=== PATIENT | male | born 1990 | race Caucasian/White ===

== ENCOUNTER → 2019-10-23 | Outpatient (CLI) | payer OTHER ==
[2019-10-23 22:11] LABS: Total Protein,CSF 49 mg/dL (12-60)
[2019-10-24 02:13] LABS: Appearance,CSF Clear; CSF Tube Number 4; CSF Tube Volume 2.5; Nucleated Cells, CSF 1 u/L (0-5); Red Blood Cell,CSF 1 u/L (0-10)
== END | disposition home or self-care (01) ==
LOC: LABWHC1 09:22
PROVIDERS: ATTEND Psychiatry & Neurology Neurology
DX: R90.82 White matter disease, unspecified (principal)
CPT/HCPCS: 36415; 82040; 82042; 82784; 83873; 83916; 84157; 87801; 89050

== ENCOUNTER 2022-02-22 09:58 | Inpatient (IN) | payer BC, MEDICAID, OTHER ==
--- NOTE | 2022-02-22 10:40 | ED ---
General Adult HPI - General Chief complaint: Psychiatric Symptoms Stated complaint: mental health Time Seen by Provider: 02/22/22 10:25 Source: patient, RN notes reviewed, old records reviewed Mode of arrival: ambulatory - History of Present Illness Initial comments: This is a 31-year-old male who presents emergency Department with his girlfriend and his mother. Mother and girlfriend state that for the last 3 days she's not been acting like himself. Patient thinks is probably patient thinks he has answered to life and he is making all sorts of weird comments that don't seem to be based in reality. Patient himself tells me that he has answered to life and it is too and he states that he can help ethically communicate with most people. Patient states he has used marijuana but no other drugs. Patient family states that this all started after he got a massage. Patient denies any recent fever chills or cough. Patient states he feels supple. Patient states she's just waiting for the rest of the answers to calm to home and is crampy in the form of some numbers. - Related Data Home Medications Medication Instructions Recorded Confirmed No Known Home Medications 02/22/22 02/22/22 Allergies Allergy/AdvReac Type Severity Reaction Status Date / Time No Known Allergies Allergy Verified 02/22/22 11:09 Review of Systems ROS Statement: Those systems with pertinent positive or pertinent negative responses have been documented in the HPI. ROS Other: All systems not noted in ROS Statement are negative. Past Medical History Past Medical History: No Reported History History of Any Multi-Drug Resistant Organisms: None Reported Additional Past Surgical History / Comment(s): eye Past Psychological History: No Psychological Hx Reported Smoking Status: Current every day smoker Past Alcohol Use History: Rare Past Drug Use History: Marijuana General Exam - General Exam Comments Initial Comments: GENERAL: Patient is well-developed and well-nourished. Patient is nontoxic and well- hydrated and is in no acute distress. ENT: Neck is soft and supple. No significant lymphadenopathy is noted. Oropharynx is clear. Moist mucous membranes. Neck has full range of motion without eliciting any pain. EYES: The sclera were anicteric and conjunctiva were pink and moist. Extraocular movements were intact and pupils were equal round and reactive to light. Eyelids were unremarkable. PULMONARY: Unlabored respirations. Good breath sounds bilaterally. No audible rales rhonchi or wheezing was noted. CARDIOVASCULAR: There is a regular rate and rhythm without any murmurs gallops or rubs. ABDOMEN: Soft and nontender with normal bowel sounds. SKIN: Skin is clear with no lesions or rashes and otherwise unremarkable. NEUROLOGIC: Patient is alert and oriented x3. Cranial nerves II through XII are grossly intact. Motor and sensory are also intact. Normal speech, volume and content. Symmetrical smile. MUSCULOSKELETAL: Normal extremities with adequate strength and full range of motion. No lower extremity swelling or edema. No calf tenderness. LYMPHATICS: No significant lymphadenopathy is noted PSYCHIATRIC: Normal psychiatric evaluation. Course Vital Signs 02/22/22 02/22/22 10:08 15:16 Temperature 98 F 98.3 F Pulse Rate 106 H Pulse Rate [ 85 Pulse Oximetery ] Respiratory 18 18 Rate Blood Pressure 157/85 Blood Pressure 150/85 [Right Arm] O2 Sat by Pulse 98 98 Oximetry Medical Decision Making - Medical Decision Making Was pt. sent in by a medical professional or institution (, PA, CONTROL ROOM TENDER, urgent care, hospital, or halfway...) When possible be specific @ -No Did you speak to anyone other than the patient for history (EMS, parent, family, police, friend...)? What history was obtained from this source @ -I spoke with the [place] front and the mother about this case Did you review nursing and triage notes (agree or disagree)? Why? @ -I reviewed and agree with nursing and triage notes Were old charts reviewed (outside hosp., previous admission, EMS record, old EKG, old radiological studies, urgent care reports/EKG's, halfway records)? Report findings @ -No old charts were reviewed Differential Diagnosis (chest pain, altered mental status, abdominal pain women, abdominal pain men, vaginal bleeding, weakness, fever, dyspnea, syncope, headache, dizziness, GI bleed, back pain, seizure, CVA, palpatations, mental health)? @ -Drugs, psychosis, manic is not all inclusive list EKG interpreted by me (3pts min.). @ -As above X-rays interpreted by me (1pt min.). @ -None done CT interpreted by me (1pt min.). @ -None done U/S interpreted by me (1pt. min.). @ -None done What testing was considered but not performed or refused? (CT, X-rays, U/S, labs)? Why? @ -None What meds were considered but not given or refused? Why? @ -None Did you discuss the management of the patient with other professionals (professionals i.e. , PA, CONTROL ROOM TENDER, lab, RT, psych nurse, social insurance analyst, nursing scheduler, teacher, chief lending officer, case making machine operator)? Give summary @ -Woke with the EPS nurse and she spoke with the psychiatrist they decided to admit the patient. Was smoking cessation discussed for >3mins.? @ -No Was critical care preformed (if so, how long)? @ -No Were there social determinants of health that impacted care today? How? (Homelessness, low income, unemployed, alcoholism, drug addiction, transportation, low edu. Level, literacy, decrease access to med. care, assisted, rehab)? @ -No Was there de-escalation of care discussed even if they declined (Discuss DNR or withdrawal of care, Hospice)? DNR status @ -No What co-morbidities impacted this encounter? (DM, HTN, Smoking, COPD, CAD, Cancer, CVA, ARF, Chemo, Hep., AIDS, mental health diagnosis, sleep apnea, morbid obesity)? @ -None Was patient admitted / discharged? Hospital course, mention meds given and route, prescriptions, significant lab abnormalities, going to OR and other pertinent info. @ -Patient will be admitted to the psych unit patient signed himself in. Undiagnosed new problem with uncertain prognosis? @ -No Drug Therapy requiring intensive monitoring for toxicity (Heparin, Nitro, Insulin, Cardizem)? @ -No Were any procedures done? @ -No Diagnosis/symptom? @ -Psychosis Acute, or Chronic, or Acute on Chronic? @ -Acute Uncomplicated (without systemic symptoms) or Complicated (systemic symptoms)? @ -default Side effects of treatment? @ -No Exacerbation, Progression, or Severe Exacerbation? @ -No Poses a threat to life or bodily function? How? (Chest pain, USA, ME, pneumonia, PE, COPD, DKA, ARF, appy, cholecystitis, CVA, Diverticulitis, Homicidal, Suicidal, threat to staff... and all critical care pts) @ -No - Lab Data Lab Results 02/22/22 02/22/22 Range/Units 10:42 14:22 Urine Opiates Screen Not Detected (NotDetected) Ur Oxycodone Screen Not Detected (NotDetected) Urine Methadone Screen Not Detected (NotDetected) Ur Propoxyphene Screen Not Detected (NotDetected) Ur Barbiturates Screen Not Detected (NotDetected) U Tricyclic Antidepress Not Detected (NotDetected) Ur Phencyclidine Scrn Not Detected (NotDetected) Ur Amphetamines Screen Not Detected (NotDetected) U Methamphetamines Scrn Not Detected (NotDetected) U Benzodiazepines Scrn Not Detected (NotDetected) Urine Cocaine Screen Not Detected (NotDetected) U Marijuana (THC) Screen Detected H (NotDetected) Coronavirus (PCR) Not Detected (Not Detectd) Disposition Clinical Impression: Acute psychosis Disposition: ADMITTED IP TO THIS HOSP Time of Disposition: 13:36
[2022-02-22 11:28] LABS: Amphetamine Screen,Urine Not Detected (NotDetected); Barbiturate Screen,Urine Not Detected (NotDetected); Benzodiazepines Screen,Urine Not Detected (NotDetected); Cocaine Screen,Urine Not Detected (NotDetected); Methadone Screen, Urine Not Detected (NotDetected); Opiate Screen,Urine Not Detected (NotDetected); Oxycodone Screen, Urine Not Detected (NotDetected); Phencyclidine Screen,Urine Not Detected (NotDetected); Tricyclic Antidepressant,Urine Not Detected (NotDetected); Urn Cannabinoid Scrn Detected (NotDetected)
[2022-02-22] MEDS ORDERED: MAGNESIUM HYDROXIDE 2,400 MG/10 ML CUP PO PRN (15:41)
[2022-02-22] MEDS ORDERED: HALOPERIDOL LACTATE 5 MG/ML 1 ML VIAL IM PRN (15:41)
[2022-02-22] MEDS ORDERED: LORazepam 1 MG TAB PO PRN (15:41)
[2022-02-22] MEDS ORDERED: ACETAMINOPHEN TAB 325 MG TAB PO PRN (15:41)
[2022-02-22] MEDS ORDERED: MAG HYDROX/AL HYDROX/SIMETH 30 ML CUP PO PRN (15:41)
[2022-02-22] MEDS ORDERED: haloperidoL 5 MG TAB PO PRN (15:44)
[2022-02-22] MEDS ORDERED: LORazepam 2 MG/ML INJ IM PRN (15:44)
--- NOTE | 2022-02-22 23:51 | P.PN ---
Progress Note - Text Progress Note Date: 02/22/22 Attempted to see the patient in the mental health unit at 2200. The patient was sedated and inappropriate for evaluation as per the mental health RN.
[2022-02-23 08:15] LABS: Basophils % (A) 0 %; Eosinophils % (A) 0 %; HCT 46.4 % (39.0-53.0); HGB 15.8 gm/dL (13.0-17.5); Lymphocytes # (A) 1.5 k/uL (1.0-4.8); Lymphocytes % (A) 24 %; MCH 31.6 pg (25.0-35.0); MCHC 34.1 g/dL (31.0-37.0); MCV 92.9 fL (80.0-100.0); Mean Platelet Volume 8.6; Monocytes # (A) 0.4 k/uL (0-1.0); Monocytes % (A) 7 %; Neutrophils # (A) 4.2 k/uL (1.3-7.7); Neutrophils % (A) 67 %; Platelet Count 280 k/uL (150-450); RBC 4.99 m/uL (4.30-5.90); RDW 12.4 % (11.5-15.5); WBC 6.2 k/uL (3.8-10.6)
[2022-02-23 08:24] LABS: ALT 38 U/L (4-49); AST 56 U/L (17-59); African American GFR (CKD) >90 (>60 ml/min/1.73 sqM); Alkaline Phosphatase 59 U/L (38-126); Anion Gap 8 mmol/L; Blood Urea Nitrogen 17 mg/dL (9-20); Calcium 9.5 mg/dL (8.4-10.2); Carbon Dioxide 27 mmol/L (22-30); Chloride 103 mmol/L (98-107); Glucose 87 mg/dL (74-99); Non-African American GFR(CKD) 79 (>60 ml/min/1.73 sqM); Potassium 4.4 mmol/L (3.5-5.1); Sodium 138 mmol/L (137-145); Total Bilirubin 1.3 mg/dL (0.2-1.3); Total Protein 8.2 g/dL (6.3-8.2)
[2022-02-23] MEDS ORDERED: PALIPERIDONE 3 MG TAB.ER.24 PO STA (10:19)
--- NOTE | 2022-02-23 12:32 | P.HP ---
Psychiatric H&P - . H&P Date: 02/23/22 History & Physical: Allergies Allergy/AdvReac Type Severity Reaction Status Date / Time No Known Allergies Allergy Verified 02/22/22 11:09 Vital Signs Temp 98.5 F 02/23/22 06:15 Pulse 97 02/23/22 06:15 Resp 17 02/23/22 06:15 BP 141/81 02/23/22 06:15 Pulse Ox 97 02/23/22 06:15 FiO2 Intake & Output 02/22/22 02/23/22 02/23/22 18:59 06:59 18:59 Weight 84 kg Laboratory Last Values WBC 6.2 k/uL (3.8-10.6) 02/23/22 07:19 RBC 4.99 m/uL (4.30-5.90) 02/23/22 07:19 Hgb 15.8 gm/dL (13.0-17.5) 02/23/22 07:19 Hct 46.4 % (39.0-53.0) 02/23/22 07:19 MCV 92.9 fL (80.0-100.0) 02/23/22 07:19 MCH 31.6 pg (25.0-35.0) 02/23/22 07:19 MCHC 34.1 g/dL (31.0-37.0) 02/23/22 07:19 RDW 12.4 % (11.5-15.5) 02/23/22 07:19 Plt Count 280 k/uL (150-450) 02/23/22 07:19 MPV 8.6 02/23/22 07:19 Neutrophils % 67 % 02/23/22 07:19 Lymphocytes % 24 % 02/23/22 07:19 Monocytes % 7 % 02/23/22 07:19 Eosinophils % 0 % 02/23/22 07:19 Basophils % 0 % 02/23/22 07:19 Neutrophils # 4.2 k/uL (1.3-7.7) 02/23/22 07:19 Lymphocytes # 1.5 k/uL (1.0-4.8) 02/23/22 07:19 Monocytes # 0.4 k/uL (0-1.0) 02/23/22 07:19 Eosinophils # 0.0 k/uL (0-0.7) 02/23/22 07:19 Basophils # 0.0 k/uL (0-0.2) 02/23/22 07:19 Sodium 138 mmol/L (137-145) 02/23/22 07:19 Potassium 4.4 mmol/L (3.5-5.1) 02/23/22 07:19 Chloride 103 mmol/L (98-107) 02/23/22 07:19 Carbon Dioxide 27 mmol/L (22-30) 02/23/22 07:19 Anion Gap 8 mmol/L 02/23/22 07:19 BUN 17 mg/dL (9-20) 02/23/22 07:19 Creatinine 1.24 mg/dL (0.66-1.25) 02/23/22 07:19 Est GFR (CKD-EPI)AfAm >90 (>60 ml/min/1.73 sqM) 02/23/22 07:19 Est GFR (CKD-EPI)NonAf 79 (>60 ml/min/1.73 sqM) 02/23/22 07:19 Glucose 87 mg/dL (74-99) 02/23/22 07:19 Calcium 9.5 mg/dL (8.4-10.2) 02/23/22 07:19 Total Bilirubin 1.3 mg/dL (0.2-1.3) 02/23/22 07:19 AST 56 U/L (17-59) 02/23/22 07:19 ALT 38 U/L (4-49) 02/23/22 07:19 Alkaline Phosphatase 59 U/L (38-126) 02/23/22 07:19 Total Protein 8.2 g/dL (6.3-8.2) 02/23/22 07:19 Albumin 5.0 g/dL (3.5-5.0) 02/23/22 07:19 TSH 1.310 mIU/L (0.465-4.680) 02/23/22 07:19 Urine Opiates Screen Not Detected (NotDetected) 02/22/22 10:42 Ur Oxycodone Screen Not Detected (NotDetected) 02/22/22 10:42 Urine Methadone Screen Not Detected (NotDetected) 02/22/22 10:42 Ur Propoxyphene Screen Not Detected (NotDetected) 02/22/22 10:42 Ur Barbiturates Screen Not Detected (NotDetected) 02/22/22 10:42 U Tricyclic Antidepress Not Detected (NotDetected) 02/22/22 10:42 Ur Phencyclidine Scrn Not Detected (NotDetected) 02/22/22 10:42 Ur Amphetamines Screen Not Detected (NotDetected) 02/22/22 10:42 U Methamphetamines Scrn Not Detected (NotDetected) 02/22/22 10:42 U Benzodiazepines Scrn Not Detected (NotDetected) 02/22/22 10:42 Urine Cocaine Screen Not Detected (NotDetected) 02/22/22 10:42 U Marijuana (THC) Screen Detected (NotDetected) H 02/22/22 10:42 Coronavirus (PCR) Not Detected (Not Detectd) 02/22/22 14:22 02/23/22 12:32 IDENTIFYING DATA: Patient is a single, employed, 31-year-old male with no significant psychiatric history who presented to emergency department accompanied by family for acute psychotic thoughts and behavior. HPI: Patient presented to the hospital on 02/22/2022 accompanied by family for acute psychotic thoughts and behaviors. As per EPS report, the patient was ntoed to be very tangential with a flight of ideas in the emergency department. He reported "I'm here to tell everyone why people are the way that they are." He did admit to a recent suicide attempt where he drove through a red light. He reported to the EPS nurse that since he did not he "passed." He was subsequently admitted to the psychiatric unit and signed Adult Formal Voluntary. Upon evaluation on the mental health unit, the patient reports that he began "looking and feeling different" ealier this month. History is difficult to obtain due to the patient's tangentiality. He reports that he was feeling fed up with his job at [employer] and decided to develop his own "golf bag." He reports that in doing so he began to realize differnt patterns. He goes on with many loose associations, talking about [place], watching football, and believing he needs to speak with Holman Musk. In regards to psychotic symptoms, he does endorse auditory hallucinations. He also reports delusional thoughts including loose associations and ideas of reference. He reports he watches Twitch streamers who often send him messages. The patient is unable to identify any acute stressors aside from work. He reports no significant depressive symptoms. He does endorse significant symptoms of myah including grandiosity, increased mood lability, flight of ideas, and excessive energy. He reports he would sleep a few hours per night so that he can wake up at 330 am to workout and lift. In regards to substance use, the patient denies any tobacco, alcohol, or illicit drug use. He denies any exogenous steroid, testosterone, or other supplements a side from apple cider vinegar. The patient does report he smokes marijuana at least 3 times daily. He is admitted for further evaluation and management of psychosis/myah. PAST PSYCHIATRIC HISTORY: Patient states that he has no previous psychiatric history. Patient denies being on any psychiatric medications. Patient denies any previous psychiatric hospitalizations. Patient denies any psychiatric outpatient follow-up. Aside from running the red light, he denies other attempts at suicide. PMH: Past Medical History: No Reported History History of Any Multi-Drug Resistant Organisms: None Reported Additional Past Surgical History / Comment(s): eye Past Psychological History: No Psychological Hx Reported Smoking Status: Current every day smoker Past Alcohol Use History: Rare Past Drug Use History: Marijuana ALLERGIES: NKDA CHEMICAL DEPENDENCY HISTORY: As per HPI FAMILY PSYCHIATRIC/SUBSTANCE USE HISTORY: Reported mental illness with his mother. He reports his mother was previously admitted onto this psychiatric unit. SOCIAL HISTORY: Patient was born and raised in [place], [place]. He is single however has been in a relationship with his girlfriend for approximately 3.5 years. He reports no children. He states he is employed by [employer] but is uncertain now. Graduated highschool. Hobbies and interests include gym, working out, and golf. He reports no orthodoxy affiliation. He reports a history of poaching charges when he went hunting in the past. He states it was unintentional. He reports no history of abuse. MENTAL STATUS EXAM: General Appearance: Patient appears to be stated age is alert, directable, and attempts to cooperate. Patient appears to have fair hygiene and grooming. Behavior: Patient is seated without any agitated behavior. Speech: Patient's speech is fluent and nonpressured. Mood/Affect: Patient reports their mood is "I feel okay." Affect is congruent and euthymic. Suicidality/Homicidality: Patient denies having any homicidal ideation intent or plan. Denies any suicidal ideations intent or plan Perceptions: Patient endorses auditory hallucinations. He denies any visual hallucinations. Though content/process: Flight of ideas, loose associations, ideas of reference, grandiose. Memory and concentration: AOX3, grossly intact for the purposes of this session. Can spell "WORLD" backwards Judgment and insight: poor STRENGTHS/WEAKNESSES: Strength is that the patient is in good health and relatively high functioning. Weakness is the patients heavy cannabis use. INTELLECT: average IMPRESSIONS: Acute Psychotic episode - suspect cannabis induced Rule out schizoaffect disorder bipolar type vs bipolar 1 disorder Cannabis use disorder PLAN: -Patient is admitted under voluntary status to MHU for stabilization of psychiatric symptoms and safety. Patient signed adult voluntary form and medication consent and is placed in patient's chart. -Medications : Initialy invega however patient has no insurance. He is agreeable to switch to haldol. Will start Haldol 3 mg twice daily for psychosis. Start trazodone 100 mg at bedtime for insomnia -Ativan and Haldol PRN for agitation/aggression -Patient was counselled on substance abuse and desired to cut back on use -Patient was informed of the risks, benefits and side effects of the medication and patient verbally consented to taking the medications. Patient signed med consent form and was placed in chart. -Internal Medicine consult to perform medical evaluation and physical. -SW on board for discharge planning. Encourage patient to participate in groups to work on coping skills. 02/23/22 12:32
[2022-02-23] MEDS ORDERED: haloperidoL 1 MG TAB PO SCH (21:00)
[2022-02-23] MEDS: traZODone HCL 100 MG TAB PO SCH (22:30)
--- NOTE | 2022-02-24 02:45 | P.PN ---
Progress Note - Text Progress Note Date: 02/23/22 Attempted to see the patient in the mental health unit at 2200 on 02/23. The patient was sedated as per the mental health unit RN and inappropriate for evaluation.
[2022-02-24 07:12] VITALS: TEMP 97.8
[2022-02-24] MEDS ORDERED: PALIPERIDONE 6 MG TAB.ER.24 PO SCH ×2 (09:00)
--- NOTE | 2022-02-24 11:44 | P.PN ---
Progress Note - Text Progress Note Date: 02/24/22 Interval History: Patient was seen wandering the hallways and was directable and agreeable to speak with short story writer in the office. The patient is reporting that he is feeling better. He states "I am feeling the energy and good thoughts from everyone and I feel it myself." He expresses he was able to sleep last night and he ate as well. He has been adherent with his medications and is not endorsing any side effects at this time. He did have brain imaging performed in 2019 for evaluation of MS as he experienced some memory issues and balance issues in the past. Dr Toro's office will be sending the MRI from that evaluation via fax. The patient's mother provided collateral information after the patient signed an VINCE for her. The patient's mother reports that the patient first began experiencing symptoms over the past week. She does suspect that the patient has been using copious amounts marijuana and mushrooms. Of note, the patient did require Haldol last night due to paranoia and requesting to leave the psychiatric unit. Mental Status Exam: General Appearance: Patient appears to be stated age is alert, directable, and cooperative. Behavior: Patient is calmly seated without any agitated behavior. Speech: Patient's speech is fluent and nonpressured. Much more linear and logical today. Mood/Affect: Mood is improving mildly, affect is expansive and bright. Suicidality/Homicidality: Patient denies having any suicidal or homicidal ideation intent or plan. Perceptions: Patient denies any visual hallucinations and denies any auditory hallucinations Though content/process: Some grandiose delusional thought content is endorsed however he is much more linear and logical today. Memory and concentration: AOX3, grossly intact for the purposes of this session Judgment and insight: Improving mildly Vital Signs Temp 97.8 F 02/24/22 06:33 Pulse 79 02/24/22 06:33 Resp 16 02/24/22 06:33 BP 133/75 02/24/22 06:33 Pulse Ox 97 02/23/22 06:15 FiO2 Laboratory Results - Last 24 Hours 02/23/22 07:[address] Glu mg/dL 116 Hemoglobin A1c 5.7 Assessment Substance-induced bipolar disorder Rule out schizoaffective disorder bipolar type versus bipolar 1 disorder Cannabis use disorder Other psychoactive substance use disorder Plan: -Patient continues to meet criteria for inpatient psychiatric admission for symptom stabilization and safety. Patient has signed adult voluntary form and medication consent and was placed in patient's chart. -Medications: Increase Invega to 6 mg by mouth daily for psychosis today. Increase it to 9 mg tomorrow. Continue trazodone 100 mg by mouth at bedtime for insomnia -When necessary Ativan and Haldol for agitation/aggression. -SW on board for discharge planning. Encouraged the patient to participate in milieu.
[2022-02-24] MEDS: traZODone HCL 100 MG TAB PO SCH (20:05)
[2022-02-25 03:42] VITALS: BP 124/73; PULSE 108; RESP 18
[2022-02-25 07:11] LABS: Chol/HDL Ratio 3.71 Ratio; LDL Cholesterol,Calculated 118.9 mg/dL (0.0-131.0)
[2022-02-25] MEDS ORDERED: PALIPERIDONE 3 MG TAB.ER.24 PO SCH (09:00)
--- NOTE | 2022-02-25 12:58 | P.DS ---
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 Patient presented to the hospital on 02/22/2022 accompanied by family for acute psychotic thoughts and behaviors. As per EPS report, the patient was ntoed to be very tangential with a flight of ideas in the emergency department. He reported "I'm here to tell everyone why people are the way that they are." He did admit to a recent suicide attempt where he drove through a red light. He reported to the EPS nurse that since he did not he "passed." He was subsequently admitted to the psychiatric unit and signed Adult Formal Voluntary. Upon evaluation on the mental health unit, the patient reports that he began "looking and feeling different" ealier this month. History is difficult to obtain due to the patient's tangentiality. He reports that he was feeling fed up with his job at and decided to develop his own "golf bag." He reports that in doing so he began to realize differnt patterns. He goes on with many loose associations, talking about [place], watching football, and believing he needs to speak with Huang Musk. In regards to psychotic symptoms, he does endorse auditory hallucinations. He also reports delusional thoughts including loose associations and ideas of reference. He reports he watches [employer] streamers who often send him messages. The patient is unable to identify any acute stressors aside from work. He reports no significant depressive symptoms. He does endorse significant symptoms of myah including grandiosity, increased mood lability, flight of ideas, and excessive energy. He reports he would sleep a few hours per night so that he can wake up at 330 am to workout and lift. In regards to substance use, the patient denies any tobacco, alcohol, or illicit drug use. He denies any exogenous steroid, testosterone, or other supplements aside from apple cider vinegar. The patient does report he smokes marijuana at least 3 times daily. He is admitted for further evaluation and management of psychosis/myah. Hospital course: Upon admission to the unit patient was initially presenting as overtly manic with grandiose delusions, impulsivity, and poor insight. Patient was however directable and agreeable to commence treatment. Patient got along well with other patients on the unit and followed unit protocol. Patient was compliant with the medications and denied any side effects throughout hospital course. Patient was started on .Invega for management of psychosis Patient spoke of his stressors and engaged in therapy both group and individual. Patient was also seen by medical team for history and physical exam. Over the course of the hospital patient, the patient displayed significant improvement in regards to his target symptoms of psychosis and myah. He displayed an improvement in sleep and reality testing. He was calm and cooperative with staff and peers. He developed better insight and judgment. His medication was titrated and he tolerated medication well. On the day of discharge, the patient is not reporting any suicidal or homicidal ideation, intention, and/or plan. He was not reporting any auditory or visual hallucinations. He did not report any paranoia or other delusions. He was sleeping well and expressed no significant manic symptoms of grandiosity, racing thoughts, or mood lability. The patient does have a significant history of substance abuse and was counseled great length and obtaining from all substances including tobacco, marijuana, alcohol, and illicit drugs. The patient was counseled great length and reports medication adherence. Fredy outpatient follow-up. He denies any access to firearms or other weapons. He reports no issues regarding his medical health and denies any chest pain, shortness of breath, palpitations, or muscle tightness or weakness. As the patient along met criteria for continued inpatient psychiatric hospitals addition, he was subsequently discharged. Mental status exam: General Appearance: Patient appears to be stated age is alert, pleasant, and cooperative. Patient is in no acute distress and has fair hygiene and grooming Behavior: Patient is calmly seated without any agitated behavior. Eye contact is appropriate. Speech: Patient's speech is fluent and nonpressured. Mood/Affect: Patient reports their mood is "I'm feeling really good", affect is congruent and euthymic with appropriate range. Suicidality/Homicidality: Patient denies having any suicidal or homicidal ideation intent or plan. Perceptions: Patient denies any auditory or visual hallucinations. Though content/process: There is no evidence of any delusional thought content and thought process is linear and goal-directed. He is future and goal oriented. Memory and concentration: AOX3, grossly intact for the purposes of this session. Can spell "WORLD" backwards correctly. Judgment and insight: Improved with guarded prognosis Impression: Substance induced bipolar disorder Cannabis use disorder Plan: -Continue with discharge today as patient has improved and stabilized psychiatrically and is not currently an imminent threat to himself and/or others. Patient will remain at chronically elevated risk if he continues to use substances such as marijuana. -Continue medications: Invega 9 mg daily for psychosis Trazodone 100 mg at bedtime for insomnia. -Patient was counseled on the need for medication compliance and appropriate follow-up at mental health and also primary care for medical issues. Patient verbalized understanding and agreed. -Social work to arrange for and conduct family meeting to ensure safety upon discharge and answer any questions/concerns. Social work also to arrange for patients follow up appointments with [facility] sr. social media & mobile manager for psychiatric care along with follow up with primary care provider. -Patient counseled on abstaining from recreational drugs and marijuana and alcohol. Was informed/educated on the adverse effects on their physical and mental health. Patient verbally agreed and understood. -Patient was instructed to return to the hospital or seek immediate medical care if their psychiatric or medical symptoms do worsen or reoccur. -Psychoeducation and supportive therapy provided to patient. Risks and benefits of pharmacological treatment versus the risks and benefits of nontreatment weight and discussed. Informed consent discussion held. Common side effects of psychotropics discussed such as, but not limited to headache, GI disturbance, sexual dysfunction, movement disorders, sedation, and orthostatic hypotension. Life threatening and blackbox warnings of prescribed medications also discussed. Potential risks of operating a vehicle or heavy machinery discussed with patient at length. Advised on importance of compliance and a reliable and responsible manner. Patient advised to review FDA consumer labeling of all medications prior to taking. Patient verbalized understanding of potential risks, and agrees with current treatment plan. Patient advised to medically contact physician/emergency personnel if any acute changes in condition occur. Vital Signs Temp 97.8 F 02/24/22 06:33 Pulse 108 H 02/25/22 03:41 Resp 18 02/25/22 03:41 BP 124/73 02/25/22 03:41 Pulse Ox 99 02/25/22 03:41 FiO2 Laboratory Results WBC 6.2 k/uL (3.8-10.6) 02/23/22 07:19 RBC 4.99 m/uL (4.30-5.90) 02/23/22 07:19 Hgb 15.8 gm/dL (13.0-17.5) 02/23/22 07:19 Hct 46.4 % (39.0-53.0) 02/23/22 07:19 MCV 92.9 fL (80.0-100.0) 02/23/22 07:19 MCH 31.6 pg (25.0-35.0) 02/23/22 07:19 MCHC 34.1 g/dL (31.0-37.0) 02/23/22 07:19 RDW 12.4 % (11.5-15.5) 02/23/22 07:19 Plt Count 280 k/uL (150-450) 02/23/22 07:19 MPV 8.6 02/23/22 07:19 Neutrophils % 67 % 02/23/22 07:19 Lymphocytes % 24 % 02/23/22 07:19 Monocytes % 7 % 02/23/22 07:19 Eosinophils % 0 % 02/23/22 07:19 Basophils % 0 % 02/23/22 07:19 Neutrophils # 4.2 k/uL (1.3-7.7) 02/23/22 07:19 Lymphocytes # 1.5 k/uL (1.0-4.8) 02/23/22 07:19 Monocytes # 0.4 k/uL (0-1.0) 02/23/22 07:19 Eosinophils # 0.0 k/uL (0-0.7) 02/23/22 07:19 Basophils # 0.0 k/uL (0-0.2) 02/23/22 07:19 Sodium 138 mmol/L (137-145) 02/23/22 07:19 Potassium 4.4 mmol/L (3.5-5.1) 02/23/22 07:19 Chloride 103 mmol/L (98-107) 02/23/22 07:19 Carbon Dioxide 27 mmol/L (22-30) 02/23/22 07:19 Anion Gap 8 mmol/L 02/23/22 07:19 BUN 17 mg/dL (9-20) 02/23/22 07:19 Creatinine 1.24 mg/dL (0.66-1.25) 02/23/22 07:19 Est GFR (CKD-EPI)AfAm >90 (>60 ml/min/1.73 sqM) 02/23/22 07:19 Est GFR (CKD-EPI)NonAf 79 (>60 ml/min/1.73 sqM) 02/23/22 07:19 Glucose 87 mg/dL (74-99) 02/23/22 07:[address] Glu mg/dL 116 02/23/22 07:19 Hemoglobin A1c 5.7 % (0.0-6.0) 02/23/22 07:19 Calcium 9.5 mg/dL (8.4-10.2) 02/23/22 07:19 Total Bilirubin 1.3 mg/dL (0.2-1.3) 02/23/22 07:19 AST 56 U/L (17-59) 02/23/22 07:19 ALT 38 U/L (4-49) 02/23/22 07:19 Alkaline Phosphatase 59 U/L (38-126) 02/23/22 07:19 Total Protein 8.2 g/dL (6.3-8.2) 02/23/22 07:19 Albumin 5.0 g/dL (3.5-5.0) 02/23/22 07:19 Triglycerides 59.00 mg/dL (0.00-149.00) 02/23/22 07:19 Cholesterol 179.00 mg/dL (0.00-200.00) 02/23/22 07:19 LDL Cholesterol, Calc 118.9 mg/dL (0.0-131.0) 02/23/22 07:19 VLDL Cholesterol, Calc 11.80 mg/dL (5.00-40.00) 02/23/22 07:19 HDL Cholesterol 48.30 mg/dL (40.00-60.00) 02/23/22 07:19 Cholesterol/HDL Ratio 3.71 Ratio 02/23/22 07:19 TSH 1.310 mIU/L (0.465-4.680) 02/23/22 07:19 Urine Opiates Screen Not Detected (NotDetected) 02/22/22 10:42 Ur Oxycodone Screen Not Detected (NotDetected) 02/22/22 10:42 Urine Methadone Screen Not Detected (NotDetected) 02/22/22 10:42 Ur Propoxyphene Screen Not Detected (NotDetected) 02/22/22 10:42 Ur Barbiturates Screen Not Detected (NotDetected) 02/22/22 10:42 U Tricyclic Antidepress Not Detected (NotDetected) 02/22/22 10:42 Ur Phencyclidine Scrn Not Detected (NotDetected) 02/22/22 10:42 Ur Amphetamines Screen Not Detected (NotDetected) 02/22/22 10:42 U Methamphetamines Scrn Not Detected (NotDetected) 02/22/22 10:42 U Benzodiazepines Scrn Not Detected (NotDetected) 02/22/22 10:42 Urine Cocaine Screen Not Detected (NotDetected) 02/22/22 10:42 U Marijuana (THC) Screen Detected (NotDetected) H 02/22/22 10:42 Coronavirus (PCR) Not Detected (Not Detectd) 02/22/22 14:22 Allergies Allergy/AdvReac Type Severity Reaction Status Date / Time No Known Allergies Allergy Verified 02/22/22 11:09 Patient Condition at Discharge: Stable Plan - Discharge Summary Discharge Rx Participant: Yes New Discharge Prescriptions: New traZODone HCL [Desyrel] 100 mg PO HS PRN 30 Days #30 tab PRN Reason: Insomnia Paliperidone [Invega] 9 mg PO DAILY 30 Days #30 tab Discharge Medication List Paliperidone [Invega] 9 mg PO DAILY 30 Days #30 tab 02/25/22 [Rx] traZODone HCL [Desyrel] 100 mg PO HS PRN 30 Days #30 tab 02/25/22 [Rx] Follow up Appointment(s)/Referral(s): [facility] [Outside] - 03/03/22 3:30 pm (Patricia) [facility] [NON-STAFF] - 1 Week Patient Instructions/Handouts: Psychotic Disorder (DC) Activity/Diet/Wound Care/Special Instructions: Avoid the use of street drugs and alcohol. Take all prescriptions as prescribed. When you are in need of refills on your medications, please contact your medical provider and/or outpatient psychiatrist to have this done. Please go to scheduled outpatient appointment for aftercare treatment. If symptoms return or become worse, call the crisis line at and/or go to the nearest emergency room for evaluation Discharge Disposition: HOME SELF-CARE
== END 2022-02-25 13:17 | disposition home or self-care (01) | DRG 885 ==
LOC: EC 09:58 → 3MHU 15:14
PROVIDERS: ADMIT Psychiatry & Neurology Psychiatry; ATTEND Psychiatry & Neurology Psychiatry
DX: F31.9 Bipolar disorder, unspecified (principal); F12.159 Cannabis abuse with psychotic disorder, unspecified; F17.210 Nicotine dependence, cigarettes, uncomplicated; G47.00 Insomnia, unspecified; Z20.822 Contact with and (suspected) exposure to COVID-19; Z91.51 Personal history of suicidal behavior; Z28.310 Unvaccinated for COVID-19
CPT/HCPCS: 80053; 80061; 80306; 82075; 83036; 84443; 85025; 87635; 99285

== ENCOUNTER 2024-02-22 18:13 | Emergency (ER) | payer BC, OTHER ==
[2024-02-22 18:19] VITALS: RESP 18; TEMP 98.2
--- NOTE | 2024-02-22 20:20 | ED ---
Psych HPI - General Chief Complaint: Psychiatric Symptoms Stated Complaint: mental health Time Seen by Provider: 02/22/24 18:20 Source: patient Mode of arrival: ambulatory - History of Present Illness Initial Comments: Patient presents to the emergency department accompanied by his for mental health evaluation. Patient has a history of bipolar disorder. is concerned about his current behavior thinking that he may be manic. states that the patient is overly friendly with people that they do not know. He is obsessed with working out and helping others achieve their fitness goals. He frequently talks about buddhism and God. States that last time he had a manic outbreak that he was religiously preoccupied. Patient reported to smoking marijuana the other night and "talked to God". denies any suicidal or homicidal statements. Denies any behavior that has put the patient or anyone else in harm's way. She has been deployed for the past year. States that the patient is currently not taking any medications. She denies hearing from any other close contacts of the patient that he has demonstrated any abnormal behavior. Patient reports that he is trying to develop a close relationship with God. Reports that he is trying to be a better person especially for his and states that he is "just trying to love her the best he can". no other alleviating, precipitating or modifying factors - Related Data Home Medications Medication Instructions Recorded Confirmed No Known Home Medications 02/22/24 02/24/24 Allergies Allergy/AdvReac Type Severity Reaction Status Date / Time No Known Allergies Allergy Verified 02/24/24 19:49 Review of Systems ROS Statement: Those systems with pertinent positive or pertinent negative responses have been documented in the HPI. ROS Other: All systems not noted in ROS Statement are negative. Past Medical History Past Medical History: No Reported History History of Any Multi-Drug Resistant Organisms: None Reported Additional Past Surgical History / Comment(s): eye Past Anesthesia/Blood Transfusion Reactions: No Reported Reaction Past Psychological History: Bipolar Smoking Status: Current every day smoker Past Alcohol Use History: Rare Past Drug Use History: Marijuana General Exam Limitations: no limitations General appearance: alert, in no apparent distress Head exam: Present: atraumatic, normocephalic, normal inspection Eye exam: Present: normal appearance, PERRL, EOMI. Absent: scleral icterus, conjunctival injection, periorbital swelling ENT exam: Present: normal exam, mucous membranes moist Neck exam: Present: normal inspection. Absent: tenderness, meningismus, lymp hadenopathy Respiratory exam: Present: normal lung sounds bilaterally. Absent: respiratory distress, wheezes, rales, rhonchi, stridor Cardiovascular Exam: Present: regular rate, normal rhythm, normal heart sounds. Absent: systolic murmur, diastolic murmur, rubs, gallop, clicks GI/Abdominal exam: Present: soft, normal bowel sounds. Absent: distended, tenderness, guarding, rebound, rigid Extremities exam: Present: normal inspection, full ROM, normal capillary refill. Absent: tenderness, pedal edema, joint swelling, calf tenderness Back exam: Present: normal inspection Neurological exam: Present: alert, oriented X3, CN II-XII intact Psychiatric exam: Present: normal affect, normal mood Skin exam: Present: warm, dry, intact, normal color. Absent: rash Course Vital Signs 02/22/24 02/22/24 18:14 21:27 Temperature 98.2 F Pulse Rate 72 87 Respiratory 18 18 Rate Blood Pressure 163/116 158/96 O2 Sat by Pulse 94 L 99 Oximetry Medical Decision Making - Medical Decision Making Was pt. sent in by a medical professional or institution (, PA, GENERAL DENTIST/OWNER, urgent care, hospital, or [facility]...) When possible be specific @ -No Did you speak to anyone other than the patient for history (EMS, parent, family, police, friend...)? What history was obtained from this source @ -Spoke with the for history Did you review nursing and triage notes (agree or disagree)? Why? @ -I reviewed and agree with nursing and triage notes Were old charts reviewed (outside hosp., previous admission, EMS record, old EKG, old radiological studies, urgent care reports/EKG's, [facility] records)? Report findings @ -No old charts were reviewed Differential Diagnosis (chest pain, altered mental status, abdominal pain women, abdominal pain men, vaginal bleeding, weakness, fever, dyspnea, syncope, headache, dizziness, GI bleed, back pain, seizure, CVA, palpatations, mental health, musculoskeletal)? @ -Differential Mental Health Depression, anxiety, bipolar, psychosis, schizophrenia, borderline personality, situational depression, adjustment disorder, behavioral disorder, brain tumor, malingering, substance abuse, encephalopathy, medication reaction, dementia, hypothyroidism, degenerative neurologic disorder, lupus.... This is not meant to be all-inclusive list EKG interpreted by me (3pts min.). @ -Not done X-rays interpreted by me (1pt min.). @ -None done CT interpreted by me (1pt min.). @ -None done U/S interpreted by me (1pt. min.). @ -None done What testing was considered but not performed or refused? (CT, X-rays, U/S, labs)? Why? @ -None What meds were considered but not given or refused? Why? @ -None Did you discuss the management of the patient with other professionals (professionals i.e. DrVioletta, PA, GENERAL DENTIST/OWNER, lab, RT, psych nurse, social worker assistant, corporate treasury analyst, teacher, money position officer, dependency case manager)? Give summary @ -Spoke with the EPS nurse who does clear the patient Was smoking cessation discussed for >3mins.? @ -No Was critical care preformed (if so, how long)? @ -No Were there social determinants of health that impacted care today? How? (Homelessness, low income, unemployed, alcoholism, drug addiction, transportation, low edu. Level, literacy, decrease access to med. care, long term, rehab)? @ -No Was there de-escalation of care discussed even if they declined (Discuss DNR or withdrawal of care, Hospice)? DNR status @ -No What co-morbidities impacted this encounter? (DM, HTN, Smoking, COPD, CAD, Cancer, CVA, ARF, Chemo, Hep., AIDS, mental health diagnosis, sleep apnea, morbid obesity)? @ -Bipolar disorder Was patient admitted / discharged? Hospital course, mention meds given and route, prescriptions, significant lab abnormalities, going to OR and other pertinent info. @ -Upon arrival patient seen and evaluated in bed 8. Thorough history and physical exam was performed. I did speak to the patient. I spoke with the patient's . The patient is medically cleared. He is evaluated by EPS. EPS worker does not feel that he meets inpatient criteria. Both of us do not feel that the patient is manic at this time and the current behaviors that the is concerned about are nonthreatening. Patient will be discharged home. We do recommend that he follow-up with community mental health as well as possibly looking into couples therapy. Return to the emergency department should the patient have any worsening symptoms. Patient was agreeable to this he was discharged in stable condition Undiagnosed new problem with uncertain prognosis? @ -No Drug Therapy requiring intensive monitoring for toxicity (Heparin, Nitro, Insulin, Cardizem)? @ -No Were any procedures done? @ -No Diagnosis/symptom? @ -Mental health evaluation, history of bipolar disorder Acute, or Chronic, or Acute on Chronic? @ -Acute Uncomplicated (without systemic symptoms) or Complicated (systemic symptoms)? @ -Complicated Side effects of treatment? @ -No Exacerbation, Progression, or Severe Exacerbation? @ -No Poses a threat to life or bodily function? How? (Chest pain, [place], [place], pneumonia, PE, COPD, DKA, ARF, appy, cholecystitis, CVA, Diverticulitis, Homicidal, Suicidal, threat to staff... and all critical care pts) @ -No Disposition Clinical Impression: Bipolar disorder Disposition: HOME SELF-CARE Condition: Stable Instructions (If sedation given, give patient instructions): Bipolar Disorder (ED) Additional Instructions: Please follow-up with [facility]. Return for any new or worsening symptoms Is patient prescribed a controlled substance at d/c from ED?: No Referrals: Brady Osorio MD [Primary Care Provider] - 1-2 days Time of Disposition: 20:39
[2024-02-22 21:27] VITALS: BP 158/96; PULSE 87
== END 2024-02-22 21:27 | disposition home or self-care (01) ==
LOC: EC 18:13
DX: F31.9 Bipolar disorder, unspecified (principal); F17.200 Nicotine dependence, unspecified, uncomplicated
CPT/HCPCS: 82075; 99284

== ENCOUNTER 2024-02-24 17:02 | Emergency (ER) | payer BC, OTHER ==
[2024-02-24 17:25] VITALS: TEMP 98.3
--- NOTE | 2024-02-24 20:49 | ED ---
General Adult HPI - General Chief complaint: Psychiatric Symptoms Stated complaint: Petition Time Seen by Provider: 02/24/24 18:10 Source: patient Mode of arrival: ambulatory Limitations: no limitations - History of Present Illness Initial comments: Patient is a 33-year-old male with a past medical history of bipolar disorder presenting with his today for manic episode. Patient's states that she and the patient were here yesterday and patient was ultimately discharged home. After being discharged home patient and his went to visit their family and patient was trying to guess various phone numbers of family members in writing strange numbers down on a piece of paper. Patient's also states that he was having outburst where he was punching the table. She shows me a video of the patient at home where he is having a lot of conversation with his family but is not noted to be violent. The patient states that his is tryi ng to compensate for the fact that she is not comfortable with herself. The patient denies homicidal or suicidal thoughts, thoughts of harming himself or others, auditory or visual hallucinations. He denies illicit drug use or alcohol use. He is not currently prescribed any medications. Patient's states the patient has had a similar episode in the past. - Related Data Home Medications Medication Instructions Recorded Confirmed No Known Home Medications 02/22/24 02/24/24 Allergies Allergy/AdvReac Type Severity Reaction Status Date / Time No Known Allergies Allergy Verified 02/24/24 19:49 Review of Systems ROS Statement: Those systems with pertinent positive or pertinent negative responses have been documented in the HPI. ROS Other: All systems not noted in ROS Statement are negative. Past Medical History Past Medical History: No Reported History History of Any Multi-Drug Resistant Organisms: None Reported Past Surgical History: No Surgical Hx Reported Additional Past Surgical History / Comment(s): eye Past Anesthesia/Blood Transfusion Reactions: No Reported Reaction Past Psychological History: Bipolar Smoking Status: Current some day smoker Past Alcohol Use History: Rare Past Drug Use History: Marijuana General Exam - General Exam Comments Initial Comments: PE: CONSTITUTIONAL: No apparent distress, well appearing SKIN: Warm, dry, no jaundice, hives or petechiae EYES: Pupils are equally round, extraocular movements intact without nystagmus, clear conjunctiva, non-icteric sclera HENT: Normocephalic, atraumatic, moist mucus membranes, oropharynx clear without exudates NECK: , Full range of motion, normal appearance PULMONARY: Clear to auscultation without wheezes, rhonchi, or rales, normal excursion, no accessory muscle use and no stridor CARDIOVASCULAR:[ regular rate, rhythm, normal S1 and S2. No appreciated murmurs, rubs or gallops. Extremities are well-perfused GASTROINTESTINAL: Soft, active bowel sounds throughout, non-tender, non- distended, no palpable masses, no rebound or guarding. No hepatosplenomegaly MUSCULOSKELETAL: [Extremities have no gross deformity NEUROLOGIC:_a/o x 3, GCS 15, normal mentation and speech. Moves all extremities x 4 without motor or sensory deficit PSYCHIATRIC:_pleasant mood and affect, calm and cooperative thought process is clear and linear does not appear to be responding to internal stimuli Limitations: no limitations Course Vital Signs 02/24/24 02/24/24 17:21 20:58 Temperature 98.3 F Pulse Rate 77 80 Respiratory 16 20 Rate Blood Pressure 161/90 178/98 O2 Sat by Pulse 99 98 Oximetry Medical Decision Making - Medical Decision Making Macro was pt. sent in by a medical professional or institution (, PA, SUEDE [employer]ER, urgent care, hospital, or correction...) When possible be specific @ -No Did you speak to anyone other than the patient for history (EMS, parent, family, police, friend...)? What history was obtained from this source @Patient's assisted in providing history stating that she brought the patient in today due to bizarre behavior at home and concern the patient is going through a manic episode Did you review nursing and triage notes (agree or disagree)? Why? @ -I reviewed nursing and triage notes Were old charts reviewed (outside hosp., previous admission, EMS record, old EKG, old radiological studies, urgent care reports/EKG's, correction records)? Report findings @ -Medical records reviewed Differential Diagnosis (chest pain, altered mental status, abdominal pain women, abdominal pain men, vaginal bleeding, weakness, fever, dyspnea, syncope, headache, dizziness, GI bleed, back pain, seizure, CVA, palpatations, mental health, musculoskeletal)? @Differential Mental Health Depression, anxiety, bipolar, psychosis, schizophrenia, borderline personality, situational depression, adjustment disorder, behavioral disorder, brain tumor, malingering, substance abuse, encephalopathy, medication reaction, degenerative neurologic disorder, lupus.... This is not meant to be all-inclusive list EKG interpreted by me (3pts min.). @ -As above X-rays interpreted by me (1pt min.). @ -None done CT interpreted by me (1pt min.). @ -None done U/S interpreted by me (1pt. min.). @ -None done What testing was considered but not performed or refused? (CT, X-rays, U/S, labs)? Why? @ -None What meds were considered but not given or refused? Why? @ -None Did you discuss the management of the patient with other professionals (professionals i.e. , PA, [employer]E [employer]ER, lab, RT, psych nurse, certified social workers in health care, electrolysis needle operator, teacher, health officer, case hardener)? Give summary @Case was discussed with EPS, patient was interviewed by EPS and cleared for discharge home Was smoking cessation discussed for >3mins.? @ -No Was critical care preformed (if so, how long)? @ -No Were there social determinants of health that impacted care today? How? (Homelessness, low income, unemployed, alcoholism, drug addiction, transportation, low edu. Level, literacy, decrease access to med. care, fdc, rehab)? @ -No Was there de-escalation of care discussed even if they declined (Discuss DNR or withdrawal of care, Hospice)? @ -No What co-morbidities impacted this encounter? (DM, HTN, Smoking, COPD, CAD, Cancer, CVA, ARF, Chemo, Hep., AIDS, mental health diagnosis, sleep apnea, morbid obesity)? @History of bipolar disorder Was patient admitted / discharged? Hospital course, mention meds given and route, prescriptions, significant lab abnormalities, going to OR and other pertinent info. @Discharged-patient brought in by for concern for manic episode. On my assessment patient is resting comfortably in bed, calm and cooperative. Patient's provides a history as noted in HPI, shows me pictures of a worksheet with a clock and numbers on its with various additional numbers written across it and no particular pattern, that was apparently written out by the patient last night when he was "trying to guess his family's phone numbers". There is a video of the pt having a loud conversation with his family but no violent behavior is noted. Pt is calm and cooperative with exam and plan for EPS evaluation. Pt and discussed pt's case with EPS and ultimately pt was cleared for discharge after safety planning with EPS. Pt calm and understanding of plan of care at time of discharge. Undiagnosed new problem with uncertain prognosis? @ -No Drug Therapy requiring intensive monitoring for toxicity (Heparin, Nitro, Insulin, Cardizem)? @ -No Were any procedures done? @ -No Diagnosis/symptom? @Mental health evaluation for manic episode Acute, or Chronic, or Acute on Chronic? @ -Acute Uncomplicated (without systemic symptoms) or Complicated (systemic symptoms)? @Uncomplicated Side effects of treatment? @ -No Exacerbation, Progression, or Severe Exacerbation? @ -No Poses a threat to life or bodily function? How? (Chest pain, [place], [place], pneumonia, PE, COPD, DKA, ARF, appy, cholecystitis, CVA, Diverticulitis, Homicidal, Suicidal, threat to staff... and all critical care pts) @ -No Disposition Clinical Impression: Manic episode Disposition: HOME SELF-CARE Condition: Stable Additional Instructions: Every disease is a spectrum and a small chance still exists that a serious condition could develop, for this reason, please monitor yourself closely for new, changing or worsening symptoms, symptoms that persist beyond 48 hours, seeing or hearing things that are not there, thoughts of wanting to kill or harm yourself, kill or harm others fever, inability to tolerate/keep down fluids or your medications, inability to follow up with outpatient providers as instructed and should you experience these symptoms or should you have any further concerns for your wellbeing please return to the ED or call 911 immediately. PLEASE call your primary care physician as soon as possible to arrange / discuss plan for followup appointment. Appointment in the next 1-3 days is strongly encouraged if possible. PLEASE let us know here before you leave if there is anything further we can do to be of any assistance. Take care and feel Better! Is patient prescribed a controlled substance at d/c from ED?: No Referrals: Brady Osorio MD [Primary Care Provider] - 1-2 days
[2024-02-24 21:00] VITALS: BP 178/98; PULSE 80; RESP 20
== END 2024-02-24 21:00 | disposition home or self-care (01) ==
LOC: EC 17:02
DX: F30.9 Manic episode, unspecified (principal); F17.200 Nicotine dependence, unspecified, uncomplicated
CPT/HCPCS: 82075; 99284